=== PATIENT | male | born 1980 | race Caucasian/White ===

== ENCOUNTER 2021-07-29 14:32 | Emergency (ER) | payer BC ==
[2021-07-29 14:45] VITALS: TEMP 97.7
--- NOTE | 2021-07-29 15:17 | ED ---
General Adult HPI - General Chief complaint: Urogenital Stated complaint: Blood in Urine Time Seen by Provider: 07/29/21 15:05 Source: patient, RN notes reviewed, old records reviewed Mode of arrival: ambulatory Limitations: no limitations - History of Present Illness Initial comments: Well-appearing 41-year-old male presents to the emergency room with complaints of burning with urination and hematuria 2 today. He denies any abdominal pain, nausea, vomiting or flank pain. He denies any fevers. He does state that he had unprotected sex 2 weeks ago. There is a possibility of sexually transmitted infection. He denies any urethral discharge. He has no medical history, no history of kidney stones for himself or in his family. He is a smoker but denies any drug use. -: days(s) (1) Location: genitals (penile) Radiation: non-radiation Severity scale (1-10): 0 Quality: burning Consistency: intermittent (only with urination) Worsens with: other (urinating) Associated Symptoms: denies other symptoms Treatments Prior to Arrival: none - Related Data Home Medications Medication Instructions Recorded Confirmed No Known Home Medications 07/29/21 07/29/21 Allergies Allergy/AdvReac Type Severity Reaction Status Date / Time No Known Allergies Allergy Verified 07/29/21 16:29 Review of Systems ROS Statement: Those systems with pertinent positive or pertinent negative responses have been documented in the HPI. ROS Other: All systems not noted in ROS Statement are negative. Past Medical History Past Medical History: No Reported History History of Any Multi-Drug Resistant Organisms: None Reported Past Surgical History: No Surgical Hx Reported Past Psychological History: No Psychological Hx Reported Smoking Status: Current every day smoker Past Alcohol Use History: Occasional Past Drug Use History: None Reported General Exam Limitations: no limitations General appearance: alert, in no apparent distress Head exam: Present: atraumatic, normocephalic, normal inspection Eye exam: Present: normal appearance, EOMI ENT exam: Present: normal exam, normal oropharynx, mucous membranes moist Neck exam: Present: normal inspection, full ROM. Absent: tenderness, meningismus, lymphadenopathy Respiratory exam: Present: normal lung sounds bilaterally. Absent: respiratory distress, wheezes, rales, rhonchi, stridor Cardiovascular Exam: Present: normal rhythm, tachycardia, normal heart sounds. Absent: systolic murmur, diastolic murmur, rubs, gallop, clicks, JVD Extremities exam: Present: normal inspection, full ROM, normal capillary refill. Absent: tenderness, pedal edema, joint swelling, calf tenderness Back exam: Present: normal inspection. Absent: full ROM, tenderness, CVA tenderness (R), CVA tenderness (L), rash noted Neurological exam: Present: alert, oriented X3 Psychiatric exam: Present: normal affect, normal mood Skin exam: Present: warm, dry, intact, normal color. Absent: rash, cyanosis, diaphoretic Course Vital Signs 07/29/21 07/29/21 14:42 16:00 Temperature 97.7 F Pulse Rate 120 H 97 Respiratory 20 18 Rate Blood Pressure 141/93 142/90 O2 Sat by Pulse 98 98 Oximetry Medical Decision Making - Medical Decision Making Patient presents to the emergency room with 2 episodes of burning with urination and hematuria today. Patient states he did have sexual intercourse unprotected 2 weeks ago. He denies any penile discharge. He denies any abdominal pain or flank pain. He denies any fevers nausea or vomiting. He has no medical history. He does smoke. Patient's urinalysis came back with large blood with greater than 182 RBCs, 6 WBCs. No bacteria was noted. Culture was sent off for gonorrhea and chlamydia and Trichomonas. Patient states that he continues to have burning with urination while in the ER, therefore he'll be treated with Zithromax and Rocephin while in the emergency room and directed to follow up with his primary care doctor for continuation of care. I did explain to him t hat these could be signs of bladder and/or kidney cancer and was impressed upon him the importance of followup next week. He states he does have an appointment on August 11 with his primary care doctor. Case discussed with Dr. Mark. - Lab Data Lab Results 07/29/21 Range/Units 15:55 Urine Color Yellow Urine Appearance Clear (Clear) Urine pH 6.5 (5.0-8.0) Ur Specific [place] 1.013 (1.001-1.035) Urine Protein Negative (Negative) Urine Glucose (UA) Negative (Negative) Urine Ketones Negative (Negative) Urine Blood Large H (Negative) Urine Nitrite Negative (Negative) Urine Bilirubin Negative (Negative) Urine Urobilinogen <2.0 (<2.0) mg/dL Ur Leukocyte Esterase Trace H (Negative) Urine RBC >182 H (0-5) /hpf Urine WBC 6 H (0-5) /hpf Ur Squamous Epith Cells <1 (0-4) /hpf Disposition Clinical Impression: Hematuria Disposition: HOME SELF-CARE Condition: Good Instructions (If sedation given, give patient instructions): Hematuria (ED) Additional Instructions: Follow-up with your primary care doctor as scheduled on August 11 for follow-up of hematuria. This can be a sign of bladder or kidney cancer and should be reevaluated. Return to the emergency room with any new or worsening symptoms. Please consider smoking cessation. Is patient prescribed a controlled substance at d/c from ED?: No Referrals: Kaden Fang MD [Primary Care Provider] - 1-2 days Time of Disposition: 16:49
[2021-07-29 16:07] VITALS: BP 142/90; PULSE 97; RESP 18
[2021-07-29 16:13] LABS: Appearance,Urine Clear (Clear); Bilirubin,Urine Negative (Negative); Blood,Urine Large (Negative); Color,Urine Yellow; Glucose,Urine (UA) Negative (Negative); Ketones,Urine Negative (Negative); Leukocyte Esterase,Urine Trace (Negative); Nitrite,Urine Negative (Negative); PH, Urine 6.5 (5.0-8.0); Protein,Urine Negative (Negative); RBC,Urine >182 /hpf (0-5); Specific Gravity,Urine 1.013 (1.001-1.035); Squamous Epithelial Cell,Urine <1 /hpf (0-4); Urobilinogen,Urine <2.0 mg/dL (<2.0); WBC,Urine 6 /hpf (0-5)
[2021-07-29] MEDS ORDERED: AZITHROMYCIN 250 MG TAB PO STA (16:44)
[2021-07-29] MEDS ORDERED: cefTRIAXone 250 MG VIAL IM STA (16:44)
[2021-08-01 14:02] LABS: C. trachomatis,PCR Negative (Neg,Equiv); Chlamydia trachomatis Source Urine; N. gonorrhoeae,PCR Negative (Neg,Equiv); Neisseria Source Urine
== END 2021-07-29 17:06 | disposition home or self-care (01) ==
LOC: EC 14:32
DX: R31.9 Hematuria, unspecified (principal); F17.200 Nicotine dependence, unspecified, uncomplicated; Z87.442 Personal history of urinary calculi
CPT/HCPCS: 99283; 96372; 81001; 87491; 87591; J0696

== ENCOUNTER → 2022-01-24 | Outpatient (CLI) | payer BC ==
--- NOTE | 2022-02-02 20:33 | P.EPPROC ---
- EP Procedure Note Electrophysiology Procedure Note: Holter monitor shows sinus rhythm with heart rates from 49-149 beats a minute average 29 beats a minute Occasional PVCs 1 ventricular triplet No sustained or nonsustained arrhythmias
== END | disposition home or self-care (01) ==
LOC: RADECHMAIN 11:46
PROVIDERS: ATTEND Family Medicine
DX: I49.3 Ventricular premature depolarization (principal)
CPT/HCPCS: 93225; 93226

== ENCOUNTER → 2022-03-27 | Outpatient (CLI) | payer BC ==
--- NOTE | 2022-03-27 11:48 | CA ---
Exercise Stress Test Report Name: Scooter Johnson Exam Date: 03/27/2022 09:19 Exam Location: [place] Stress Ht (in): 71 Wt (lb): 221 BSA: 2.20 Ordering Phys: Kaden Fang MD Referring Phys: VENESSA, Technologist: Dieter White Age: 41 Gender: M : 1980 Procedure CPT: Indications: R00.1 bradycardia ICD-10 Codes: Patient History: Sleep Apnea, Bradycardia Medications: Vit D3 Meds past 24 hrs: Pretest Chest Pain: STRESS TEST Renan Protocol Exercise Duration (min:sec): 09:[address] Depressions (mm): Angina Score: Razo Score: Resting HR (bpm): 91 Peak HR (bpm): 178 Resting BP (mmHg): 122 / 89 Peak BP (mmHg): 211 / 89 MPHR: 179 Target HR: 152 % MPHR: 99 METS: 11.2 Total Dose: Peak Dose: Atropine: Double Product: 40513 BP Response: Stress Termination: Reached target heart rate Stress Symptoms: No chest pain or symptoms Stress Summary: ECG ANALYSIS Resting ECG: Stress ECG: CONCLUSIONS Patient underwent exercise stress EKG with a Renan protocol treadmill stress test. Patient exercised into Stage 4 for a total of 9 minutes and 30 seconds reaching a total of 11.2 METS. Patient's maximum heart rate was 178 which represented 99 % age- predicted maximum heart rate. Stress EKG findings: At baseline patient's EKG showed normal sinus rhythm, normal axis, no significant ST or T wave abnormalities. At peak exercise, EKG showed no significant change from baseline. Conclusions: 1. Normal EKG response to exercise without evidence of inducible ischemia. 2. Good exercise capacity. Dr. Von Mariee DO (Electronically Signed) Final Date: 27 March 2022 11:47
== END | disposition home or self-care (01) ==
LOC: RADNMMAIN 08:31
PROVIDERS: ATTEND Family Medicine
DX: R00.1 Bradycardia, unspecified (principal)
CPT/HCPCS: 93017